=== PATIENT | female | born 1990 | race Caucasian/White ===

== ENCOUNTER 2016-08-08 15:06 | Emergency (ER) | payer SELFPAY ==
[~2016-08-08] VITALS: Ht 154.9 cm; Wt 41.5 kg
[~2016-08-08 15:06] MED LIST: ACET1TAB40 PO; AMO500 PO; CEPH-443 PO; IBUP800T25 PO
[2016-08-08 15:26] VITALS: Ht 154.9 cm; Wt 41.5 kg
[2016-08-08] MEDS ORDERED: SOD CHLORIDE 0.9% 1,000 ML IV ONE (18:00)
[2016-08-08 18:01] LABS: ADD SCAN DIFF NO
[2016-08-08 18:03] LABS: BASOPHILS % 0.4 % (0.0-2.0); EOSINOPHILS # 0.2 10^3/ul (0.0-0.5); EOSINOPHILS % 3.3 % (0.0-7.0); HEMATOCRIT 42.8 % (37.0-47.0); HEMOGLOBIN 14.5 g/dl (12.0-16.0); LYMPHOCYTES # 2.3 10^3/ul (0.8-2.9); LYMPHOCYTES % 32.3 % (15.0-51.0); MEAN CORPUSCULAR HEMOGLOBIN 30.1 pg (29.0-33.0); MEAN CORPUSCULAR HGB CONC 33.9 g/dl (32.0-37.0); MEAN PLATELET VOLUME 10.1 fl (7.4-10.4); MONOCYTE # 0.3 10^3/ul (0.3-0.9); MONOCYTES % 4.3 % (0.0-11.0); NEUTROPHIL # 4.3 10^3/ul (1.6-7.5); NEUTROPHILS % 59.6 % (39.0-77.0); PLATELET COUNT 229 10^3/UL (140-415); RED BLOOD COUNT 4.81 10^6/ul (4.20-5.40); RED CELL DISTRIBUTION WIDTH 12.2 % (11.5-14.5); WHITE BLOOD COUNT 7.3 10^3/ul (4.8-10.8)
[2016-08-08 18:10] LABS: ADD UMIC YES; URINE BILIRUBIN (Dip) NEGATIVE (NEGATIVE); URINE BLOOD (Dip) 3+ (NEGATIVE); URINE COLOR LT. YELLOW (YELLOW); URINE GLUCOSE (Dip) NEGATIVE (NEGATIVE); URINE KETONES (Dip) NEGATIVE (NEGATIVE); URINE LEUKOCYTE ESTERASE (Dip) NEGATIVE (NEGATIVE); URINE NITRITE (Dip) NEGATIVE (NEGATIVE); URINE TOTAL PROTEIN (Dip) NEGATIVE (NEGATIVE); URINE UROBILINOGEN (Dip) 0.2 E.U./dL (0.1-1.0)
[2016-08-08 18:16] LABS: POTASSIUM 3.8 mmol/L (3.5-5.1)
[2016-08-08 18:18] LABS: BILIRUBIN,INDIRECT 0.9 mg/dl (0-1.1); BILIRUBIN,TOTAL 0.9 mg/dl (0.2-1.3); CREATININE 0.59 mg/dl (0.44-1.00); TOTAL PROTEIN 8.9 g/dl (6.1-8.1)
[2016-08-08 18:19] LABS: ALBUMIN/GLOBULIN RATIO 1.28; CALCIUM 9.4 mg/dl (8.4-10.2)
[2016-08-08 18:22] LABS: BACTERIA,URINE FEW; SQUAMOUS EPITHELIAL CELL,UR FEW
--- NOTE | 2016-08-08 19:18 | RADRPT ---
PROCEDURE: Ultrasound pelvis CLINICAL INDICATION: left lower quadrant abdominal pain TECHNIQUE: Multiple ross scale and color Doppler images of the pelvis were obtained transabdominal ly and transvaginally. Images were reviewed PACS workstation COMPARISON: None FINDINGS: The uterus is identified, measuring 6.3 x 3.5 cm. The endometrial canal appears within normal limit s, measuring 6 mm in thickness. The right ovary measures 1.8 x 1.3 x 1.5 cm. The left ovary measures 2.1 x 0.9 x 1.3 cm. The ovari es appear unremarkable in echotexture. There is bilateral vascular flow identified. There is no evidence of free fluid. There is no abnormal adnexal mass. IMPRESSION: Unremarkable pelvic ultrasound examination. No free fluid or abnormal adnexal mass identified. RPTAT: HBST .Jesús Kent MD, Date Time Electronically viewed and signed by .Jesús Kent MD, on 08/08/2016 19:17 .T/
--- NOTE | 2016-08-08 19:40 | ERD ---
ER Documentation Chief Complaint Date/Time DATE: 08/08/16 TIME: 19:37 Chief Complaint VB, CANALES and weakness since yesterday, recently trying to get HPI 25-year-old female patient who is currently trying to get presents to the ED complaining of nausea, dizziness, weakness that started yesterday. Patient reports that sometimes her dizziness is positional. Reports that she started to have vaginal bleeding yesterday and was more heavy than usual. States that she has had some slight lower pelvic pain. Denies any vaginal discharge, chest pain, shortness of breath, wheezing, cough, fever, chills, pleuritic chest pain, dyspnea on exertion. ROS All systems reviewed and are negative except as per history of present illness. Medications Home Meds Active Scripts Acetaminophen-Codeine* (Acetaminophen-Cod #3*) 300-30 Mg Tab, 1 TAB PO Q4H Y for PAIN, #16 TAB Prov:MARÍA ELENA YOUNG MD 07/06/15 Cephalexin* (Keflex*) 500 Mg Capsule, 500 MG PO QID for 10 Days, CAP Prov:MARÍA ELENA YOUNG MD 07/06/15 Ibuprofen* (Ibuprofen*) 800 Mg Tablet, 800 MG PO Q8 for FEVER, #30 TAB Prov:RUDOLPH WHITE DO 07/04/15 Amoxicillin* (Amoxicillin*) 500 Mg Cap, 500 MG PO Q8, #21 CAP Prov:RUDOLPH WHITE DO 07/04/15 Allergies Allergies: Coded Allergies: No Known Allergy (Unverified , 08/08/16) PMhx/Soc Medical and Surgical Hx: pt denies Medical Hx, pt denies Surgical Hx History of Surgery: No Anesthesia Reaction: No Hx Neurological Disorder: No Hx Respiratory Disorders: No Hx Cardiac Disorders: No Hx Psychiatric Problems: No Hx Miscellaneous Medical Probl: No Hx Alcohol Use: No Hx Substance Use: No Hx Tobacco Use: No Smoking Status: Never smoker Physical Exam Vitals Vital Signs Date Time Temp Pulse Resp B/P Pulse Ox O2 Delivery O2 Flow Rate FiO2 08/08/16 19:46 74 16 114/70 98 08/08/16 15:26 97.4 73 18 129/71 100 Physical Exam Const: Hef-lcb-fthpaxise, well-nourished. In no acute distress. Head: Atraumatic, normocephalic Eyes: Normal Conjunctiva without injection. No purulent discharge. ENT: Normal external ear, nose. Moist oropharynx without tonsillar exudates. Non -erythematous pharynx. Uvula midline. No drooling. No trismus. Neck: No cervical midline tenderness. Full range of motion. No meningismus. No cervical lymphadenopathy. No JVD. Resp: Clear to auscultation bilaterally. No wheezing, rhonchi, rales, or crackles. No accessory muscle use. No retractions. Cardio: Regular rate and rhythm. No murmurs, rubs or gallops. Abd: Soft, slight lower abdominal tenderness, non distended. Normal bowel sounds. No palpable masses. No rebound tenderness. No guarding. Negative McBurney's point. Negative psoas sign. Negative obturator sign. Skin: No petechiae or rashes Back: No midline tenderness. No CVA tenderness. Ext: No cyanosis, or edema. Neur: Awake and alert. Normal gait. Normal coordination. Psych: Normal Mood and Affect Result Diagram: 08/08/16175008/08/16 175 Results 24 hrs Laboratory Tests Test 08/08/16 17:51 White Blood Count 7.310^3/ul Red Blood Count 4.8110^6/ul Hemoglobin 14.5g/dl Hematocrit 42.8% Mean Corpuscular Volume 89.0fl Mean Corpuscular Hemoglobin 30.1pg Mean Corpuscular Hemoglobin Concent 33.9g/dl Red Cell Distribution Width 12.2% Platelet Count 16043^3/UL Mean Platelet Volume 10.1fl Neutrophils % 59.6% Lymphocytes % 32.3% Monocytes % 4.3% Eosinophils % 3.3% Basophils % 0.4% Nucleated Red Blood Cells % 0.0/100WBC Neutrophils # 4.310^3/ul Lymphocytes # 2.310^3/ul Monocytes # 0.310^3/ul Eosinophils # 0.210^3/ul Basophils # 0.010^3/ul Nucleated Red Blood Cells # 0.010^3/ul Urine Color LT. YELLOW Urine Clarity CLEAR Urine pH 6.5 Urine Specific [place] 1.025 Urine Ketones NEGATIVE Urine Nitrite NEGATIVE Urine Bilirubin NEGATIVE Urine Urobilinogen 0.2 E.U./dL Urine Leukocyte Esterase NEGATIVE Urine Microscopic RBC 10-25/HPF Urine Microscopic WBC 0-2/HPF Urine Squamous Epithelial Cells FEW Urine Bacteria FEW Urine Hemoglobin 3+ Urine Glucose NEGATIVE% Urine Total Protein NEGATIVE Sodium Level 141mmol/L Potassium Level 3.8mmol/L Chloride Level 102mmol/L Carbon Dioxide Level 25mmol/L Anion Gap 18 Blood Urea Nitrogen 17mg/dl Creatinine 0.59mg/dl Glucose Level 93mg/dl Calcium Level 9.4mg/dl Total Bilirubin 0.9mg/dl Direct Bilirubin 0.00mg/dl Indirect Bilirubin 0.9mg/dl Aspartate Amino Transf (AST/SGOT) 25IU/L Alanine Aminotransferase (ALT/SGPT) 25IU/L Alkaline Phosphatase 77IU/L Total Protein 8.9g/dl Albumin 5.0g/dl Globulin 3.90g/dl Albumin/Globulin Ratio 1.28 Lipase 131U/L Current Medications Medications (Trade) Dose Ordered Sig/Jose Route PRN Reason Start Time Stop Time Status Last Admin Dose Admin Sodium Chloride (NS) 1,000 ml @ 1,000 mls/hr Q1H ONCE IV 08/08/16 18:00 08/08/16 18:59 DC 08/08/16 17:53 Procedures/MDM This is a 25-year-old female patient brought in by mother complaining of vaginal bleeding, weakness, dizziness started yesterday. Patient is afebrile and nontoxic-appearing. Patient has normal vital signs. A pelvic ultrasound, CBC, CMP, lipase, UA was ordered to evaluate patient. Patient symptoms improved after receiving 1 L of normal saline, 4 mg IV Zofran. CBC: No leukocytosis. No e/o of systemic infection. No e/o anemia. CMP: No e/o severe acidosis, alkalosis, renal failure, diabetic ketoacidosis, liver disease Lipase within normal limits. Urine: No leukocyte esterase, no nitrites, no hematuria. EKG reviewed and interpreted by Dr. Lauren Rate/Rhythm: [73 bpm, Normal Sinus Rhythm] No ectopy, no ST elevations, normal axis. QRS, ST, T-waves: [No changes consistent w/ acute ischemia] Impression: [No evidence of ischemia or arrhythmia] Low suspicion for acute myocardial infarction, pneumothorax, pneumonia, cardiac tamponade, pulmonary embolism, AAA, aortic dissection, Boerhaave's syndrome, cardiac dysrhythmias,meningitis, intracranial bleed, seizure, stroke, TIA or other emergent conditions. PROCEDURE: Ultrasound pelvis CLINICAL INDICATION: left lower quadrant abdominal pain TECHNIQUE: Multiple ross scale and color Doppler images of the pelvis were obtained transabdominally and transvaginally. Images were reviewed PACS workstation COMPARISON: None FINDINGS: The uterus is identified, measuring 6.3 x 3.5 cm. The endometrial canal appears within normal limits, measuring 6 mm in thickness. The right ovary measures 1.8 x 1.3 x 1.5 cm. The left ovary measures 2.1 x 0.9 x 1.3 cm. The ovaries appear unremarkable in echotexture. There is bilateral vascular flow identified. There is no evidence of free fluid. There is no abnormal adnexal mass. IMPRESSION: Unremarkable pelvic ultrasound examination. No free fluid or abnormal adnexal mass identified. Patient's bleeding symptoms have stabilized while in the department. Low suspicion for symptomatic anemia, ectopic , sepsis, PID, appendicitis, ovarian torsion, tubo-ovarian abscess, surgical abdomen, or other emergent conditions. Low suspicion for carotid artery dissection, acute myocardial infarction, pneumothorax, pneumonia, cardiac tamponade, pulmonary embolism, pleural effusion, AAA, aortic dissection, Boerhaave's syndrome, cardiac dysrhythmias, meningitis, intracranial bleed, seizure, stroke, TIA or other emergent conditions. Follow up with primary care physician/ yoker in 1-2 days. Instructed patient to return to the ED sooner for any worsening symptoms. Patient's questions were answered. Patient understood and agreed with discharge plan. Patient discharged stable. Departure Diagnosis: Primary Impression: Menstruation Condition: Stable Patient Instructions: Understanding the Normal Menstrual Cycle Referrals: [facility] () Usted se canales hecho un examen mdico de control que le indica que no est en erika condicin que requiera tratamiento urgente en el Departamento de Emergencia. Un estudio ms profundo y el tratamiento de granados condicin pueden esperar sin ningn riesgo hasta que usted sea atendida/o en el consultorio de granados mdico o erika cl sheila. Es responsabilidad suya arreglar erika gildardo para el seguimiento del dick. MANEJO DE CONDICIONES NO URGENTES EN EL FUTURO 1) Si usted tiene un mdico de atencin primaria: Usted debera llamar a granados mdico de atencin primaria antes de venir al departamento de emergencia. Despus de las horas de consultorio, granados doctor o granados asociado/a est disponible por telfono. El mdico o enfermero de tommy en el servicio telefnico puede asesorarle por kim medio para atender el problema, o dick contrario se puede programar erika gildardo. 2) Si usted no tiene un mdico de atencin primaria: Llame al mdico o clnica de referencia que aparece abajo jordan las horas de consultorio para hacer erika gildardo para que le vean. CLINICAS: [facility] [phone] [facility] [phone] [facility] [phone] [place] [address] [phone] [place] [id number] [phone] [facility]. [phone] [facility] () Usted se canales hecho un examen mdico de control que le indica que no est en erika condicin que requiera tratamiento urgente en el Departamento de Emergencia. Un estudio ms profundo y el tratamiento de granados condicin pueden esperar sin ningn riesgo hasta que usted sea atendida/o en el consultorio de granados mdico o erika cl sheila. Es responsabilidad suya arreglar erika gildardo para el seguimiento del dick. MANEJO DE CONDICIONES NO URGENTES EN EL FUTURO 1) Si usted tiene un mdico de atencin primaria: Usted debera llamar a granados mdico de atencin primaria antes de venir al departamento de emergencia. Despus de las horas de consultorio, granados doctor o granados asociado/a est disponible por telfono. El mdico o enfermero de tommy en el servicio telefnico puede asesorarle por kim medio para atender el problema, o dick contrario se puede programar erika gildardo. 2) Si usted no tiene un mdico de atencin primaria: Llame al mdico o condado institucions de referencia que aparece abajo jordan las horas de consultorio para hacer erika gildardo para que le vean. SI USTED NO PUEDE PAGAR PARA SANJU UN MEDICO puede ir a: [facility] [address] [place] [address] [facility] [address] [place] [address] [facility] [address] [place] [address] PAR[address] [facility] [address] [place], [place] [id number] [facility] URGENT CARE/SPECIALTIES [employer] [address] [facility] [address] [place], [place] [phone] OFFICE FAX BERNARDA LYLESNICA [address] [place], [place] [phone] [address] [place] [address] [place], [place] [phone] [place] [address] [facility], [address] [facility] [address] [address]IT[address] [address] [place], [place] [phone] [facility] [place] [address] [place], [place] [address] [address] [facility] [phone] - DANELLE MATHIAS [address] [facility] [phone], [place] [address] [facility]. [address], [facility] [address] [address] [address] [place] [address] [facility] Hours: 8:00 am - 5:00 pm Additional Instructions: Call your primary care doctor TOMORROW for an appointment during the next 2-3 days.See the doctor sooner or return here if your condition worsens before your appointment time. FARHAN WIGGINS PA-C Aug 08, 2016 19:40
[2016-08-08 19:46] VITALS: BP 114/70; PULSE 74; RESP 16
== END 2016-08-08 19:46 | disposition home or self-care (01) ==
LOC: FTE 15:06
DX: N92.0 Excessive and frequent menstruation with regular cycle (principal); R10.2 Pelvic and perineal pain
CPT/HCPCS: 76830; 76856; 80053; 81001; 81003; 83690; 85025; 93005; J7030; 36415

== ENCOUNTER 2016-10-21 20:09 | Emergency (ER) | payer SELFPAY ==
[~2016-10-21] VITALS: Wt 43.0 kg
--- NOTE | 2016-10-21 21:39 | ERD ---
ER Documentation Chief Complaint Date/Time DATE: 10/21/16 TIME: 21:37 Chief Complaint Vaginal bleed Since this afternoon. pelvic pain HPI 25 yo female who is A0, comes in with vaginal bleeding, and pelvic pain since this morning. She states her last LMP was September 04, 2016. Patient states that she has had light vaginal bleeding, and suprapubic intermittent pelvic pain , she states that it is diffuse. She has not had any fevers, chills, nausea, vomiting, dizziness. ROS All systems reviewed and are negative except as per history of present illness. Medications Home Meds Active Scripts Acetaminophen-Codeine* (Acetaminophen-Cod #3*) 300-30 Mg Tab, 1 TAB PO Q4H Y for PAIN, #16 TAB Prov:MARÍA ELENA YOUNG MD 07/06/15 Cephalexin* (Keflex*) 500 Mg Capsule, 500 MG PO QID for 10 Days, CAP Prov:MARÍA ELENA YOUNG MD 07/06/15 Ibuprofen* (Ibuprofen*) 800 Mg Tablet, 800 MG PO Q8 for FEVER, #30 TAB Prov:RUDOLPH WHITE DO 07/04/15 Amoxicillin* (Amoxicillin*) 500 Mg Cap, 500 MG PO Q8, #21 CAP Prov:RUDOLPH WHITE DO 07/04/15 Allergies Allergies: Coded Allergies: No Known Allergy (Unverified , 08/08/16) PMhx/Soc History of Surgery: No Anesthesia Reaction: No Hx Neurological Disorder: No Hx Respiratory Disorders: No Hx Cardiac Disorders: No Hx Psychiatric Problems: No Hx Miscellaneous Medical Probl: No Hx Alcohol Use: No Hx Substance Use: No Hx Tobacco Use: No Smoking Status: Never smoker Physical Exam Vitals Vital Signs Date Time Temp Pulse Resp B/P Pulse Ox O2 Delivery O2 Flow Rate FiO2 10/21/16 20:41 98.8 72 20 97/63 100 Physical Exam General: Well-developed, well-nourished. The patient appears in no acute distress. HEENT: Head is normocephalic, atraumatic. No scleral icterus. Neck: Supple. Nontender. Lungs: Clear to auscultation. Normal air movement. Heart: Regular rate and rhythm. S1 and S2 are normal. No murmurs, gallops, or rubs. Abdomen: Soft, suprapubic tenderness without rebound pain, nondistended. Bowel sounds are normoactive. Extremities: No clubbing or cyanosis. Normal pulses. Moving extremities x 4. No weakness. Neurologic: Alert and oriented 3. No focal deficits. Skin: Normal turgor. No rash or lesions. Result Diagram: 10/21/162203 Results 24 hrs Laboratory Tests Test 10/21/16 22:00 10/21/16 22:04 Urine Color YELLOW Urine Clarity SLIGHTLY CLOUDY Urine pH 5.0 Urine Specific [place] 1.010 Urine Ketones NEGATIVEmg/dL Urine Nitrite NEGATIVEmg/dL Urine Bilirubin NEGATIVEmg/dL Urine Urobilinogen NEGATIVEmg/dL Urine Leukocyte Esterase NEGATIVELeu/ul Urine Microscopic RBC 1/HPF Urine Microscopic WBC 1/HPF Urine Squamous Epithelial Cells FEW/HPF Urine Bacteria FEW/HPF Urine Hemoglobin 3+mg/dL Urine Glucose NEGATIVEmg/dL Urine Total Protein NEGATIVEmg/dl White Blood Count 10.010^3/ul Red Blood Count 4.4610^6/ul Hemoglobin 13.4g/dl Hematocrit 39.0% Mean Corpuscular Volume 87.4fl Mean Corpuscular Hemoglobin 30.0pg Mean Corpuscular Hemoglobin Concent 34.4g/dl Red Cell Distribution Width 12.3% Platelet Count 80811^3/UL Mean Platelet Volume 9.7fl Neutrophils % 68.4% Lymphocytes % 24.3% Monocytes % 4.5% Eosinophils % 2.2% Basophils % 0.3% Nucleated Red Blood Cells % 0.0/100WBC Neutrophils # 6.910^3/ul Lymphocytes # 2.410^3/ul Monocytes # 0.510^3/ul Eosinophils # 0.210^3/ul Basophils # 0.010^3/ul Nucleated Red Blood Cells # 0.010^3/ul DIAGNOSTIC IMAGING REPORT Patient: MILAGRO OLEA : 1990 Age: 25 Sex: F MR #: [id number] DOS: 10/21/162114 Ordering MD: KARL PARRISH PA-C Location: [facility] Room/Bed: PROCEDURE: Obstetrical ultrasound. CLINICAL INDICATION: Vaginal bleeding. TECHNIQUE: Multiple sonographic images of the pelvis were obtained with transabdominal and endovaginal technique. Images were obtained with ross scale and color Doppler. COMPARISON: 08/08/2016. FINDINGS: There is an intrauterine gestational sac with a pole identified. heart tones of 112 beats per minute are identified. The crown-rump length averages 0.48 cm, compatible with 6 weeks and 1 day. The mean sac diameter averages 1.33 cm, compatible with 6 weeks and 0 days. A yolk sac is identified. A small subchorionic collection is identified. There is no pelvic free fluid. The right ovary measures 3.0 x 1.5 x 1.8 cm and the left ovary measures 3.0 x 1.2 x 1.4 cm. There is normal flow to both ovaries. There is a left ovarian corpus luteum cyst measuring 1.4 cm. There is no suspicious adnexal mass identified. IMPRESSION: Single live intrauterine with an estimated gestational age of 6 weeks and 1 day, with an ultrasound CHARLY of 06/15/2017. Small subchorionic hemorrhage. Left ovarian 1.4 cm corpus luteum cyst. .Joe Hunt MD, Date Time Electronically viewed and signed by .Joe Hunt MD, MD on 10/21/2016 22:58 .T/ CC: KARL PARRISH PA-C Procedures/MDM ED course: Patient was offered pain medication including Tylenol at this time and she declined. Medical decision makin-year-old female this is her first , comes in with pelvic pain and vaginal bleeding 1 day. Patient is a single live intrauterine at 6 weeks. There is a small subchorionic hemorrhage however she is O+ and not a candidate for RhoGam. She is hemodynamically stable , went and will be given instructions to recheck with her OB in 3-4 days. Differential diagnosis includes normal early live intrauterine , versus threatened . No evidence of ectopic or adnexal masses Departure Diagnosis: Primary Impression: Vaginal bleeding in patient at less than 20 weeks gestation Condition: KARL Longoria PA-C Oct 21, 2016 21:39
[2016-10-21 22:19] LABS: ADD UMIC YES; UR ASCORBIC ACID NEGATIVE (NEGATIVE); UR BACTERIA FEW /HPF (NONE SEEN); UR BILIRUBIN (Dip) NEGATIVE (NEGATIVE); UR BLOOD (Dip) 3+ mg/dL (NEGATIVE); UR CLARITY SLIGHTLY CLOUDY (CLEAR); UR COLOR YELLOW (YELLOW); UR GLUCOSE (Dip) NEGATIVE (NEGATIVE); UR KETONES (Dip) NEGATIVE (NEGATIVE); UR LEUKOCYTE ESTERASE (Dip) NEGATIVE Leu/ul (NEGATIVE); UR NITRITE (Dip) NEGATIVE (NEGATIVE); UR RBC 1 /HPF (0-5); UR SQUAMOUS EPITHELIAL CELL FEW /HPF (FEW); UR TOTAL PROTEIN (Dip) NEGATIVE (NEGATIVE); UR UROBILINOGEN (Dip) NEGATIVE (NEGATIVE)
[2016-10-21 22:28] LABS: ADD SCAN DIFF NO
[2016-10-21 22:32] LABS: BASOPHILS % 0.3 % (0.0-2.0); EOSINOPHILS # 0.2 10^3/ul (0.0-0.5); EOSINOPHILS % 2.2 % (0.0-7.0); HEMOGLOBIN 13.4 g/dl (12.0-16.0); LYMPHOCYTES # 2.4 10^3/ul (0.8-2.9); LYMPHOCYTES % 24.3 % (15.0-51.0); MEAN CORPUSCULAR HGB CONC 34.4 g/dl (32.0-37.0); MEAN CORPUSCULAR VOLUME 87.4 fl (82.0-101.0); MEAN PLATELET VOLUME 9.7 fl (7.4-10.4); MONOCYTE # 0.5 10^3/ul (0.3-0.9); MONOCYTES % 4.5 % (0.0-11.0); NEUTROPHIL # 6.9 10^3/ul (1.6-7.5); NEUTROPHILS % 68.4 % (39.0-77.0); PLATELET COUNT 249 10^3/UL (140-415); RED BLOOD COUNT 4.46 10^6/ul (4.20-5.40); RED CELL DISTRIBUTION WIDTH 12.3 % (11.5-14.5)
--- NOTE | 2016-10-21 22:58 | RADRPT ---
PROCEDURE: Obstetrical ultrasound. CLINICAL INDICATION: Vaginal bleeding. TECHNIQUE: Multiple sonographic images of the pelvis were obtained with transabdominal and endova ginal technique. Images were obtained with ross scale and color Doppler. COMPARISON: 08/08/2016. FINDINGS: There is an intrauterine gestational sac with a pole identified. heart tones of 112 beat s per minute are identified. The crown-rump length averages 0.48 cm, compatible with 6 weeks a nd 1 day. The mean sac diameter averages 1.33 cm, compatible with 6 weeks and 0 days. A yolk sac is identified. A small subchorionic collection is identified. There is no pelvic free fluid. The right ovary measures 3.0 x 1.5 x 1.8 cm and the left ovary measur es 3.0 x 1.2 x 1.4 cm. There is normal flow to both ovaries. There is a left ovarian corpus luteum c yst measuring 1.4 cm. There is no suspicious adnexal mass identified. IMPRESSION: Single live intrauterine with an estimated gestational age of 6 weeks and 1 day, with an [facility] CHARLY of 06/15/2017. Small subchorionic hemorrhage. Left ovarian 1.4 cm corpus luteum cyst. .Joe Hunt MD, MD Date Time Electronically viewed and signed by .Joe Hunt MD, MD on 10/21/2016 22:58 .T/
[2016-10-22 00:35] VITALS: BP 105/63; PULSE 89; RESP 20; TEMP 98.3
== END 2016-10-22 00:36 | disposition home or self-care (01) ==
LOC: FTE 20:09
DX: O20.9 Hemorrhage in early pregnancy, unspecified (principal); R10.2 Pelvic and perineal pain; Z3A.01 Less than 8 weeks gestation of pregnancy
CPT/HCPCS: 36415; 76801; 76817; 81001; 84702; 85025; 86900; 86901

== ENCOUNTER 2017-05-29 23:45 | Inpatient (IN) | END 2017-06-01 16:50 | disposition home or self-care (01) | DRG 775 ==

== ENCOUNTER 2018-11-26 20:26 | Emergency (ER) | payer OTHER ==
[~2018-11-26] VITALS: Ht 152.4 cm; Wt 44.6 kg
[~2018-11-26 20:26] MED LIST changes: -ACET1TAB40 PO; -AMO500 PO; +AMOX500C2 PO; +FLUC150T PO; +IBUP-1542 PO; -IBUP800T25 PO; +NPH10OT LEFT EAR; +PREN-93 PO
[2018-11-26 20:30] VITALS: Ht 152.4 cm; Wt 44.6 kg
[2018-11-26] MEDS ORDERED: ACETAMINOPHEN 325 MG TAB PO ONE (21:00)
[2018-11-26] MEDS ORDERED: FLUCONAZOLE 100 MG TAB PO ONE (22:00)
[2018-11-26] MEDS ORDERED: FLUCONAZOLE 150 MG TAB PO ONE (22:00)
[2018-11-26 22:21] VITALS: BP 118/76; PULSE 71; RESP 16
--- NOTE | 2018-11-26 22:39 | ERD ---
ER Documentation Chief Complaint Chief Complaint DYSURIA X1 WEEK HPI This is a very pleasant 28-year-old female who presents to the ED complaining of vaginal itching, redness and urinary symptoms x10 days. Patient states she took [id number] topical antifungal creams with no relief. She has some urinary frequency, urgency as well. No fevers. No back pain., No nausea, no vomiting. No history of recurrent vaginal infections or urinary infections. ROS All systems reviewed and are negative except as per history of present illness. Medications Home Meds Active Scripts Cephalexin* (Keflex*) 500 Mg Capsule, 500 MG PO BID for 7 Days, CAP Prov:DISHIGRIKIAN,ZEPYUR N PA-C 11/26/18 Fluconazole* (Diflucan*) 150 Mg Tablet, 150 MG PO ONCE, #1 TAB Prov:DISHIGRIKIAN,ZEPYUR N PA-C 11/26/18 Ibuprofen* (Motrin*) 600 Mg Tab, 600 MG PO Q6H PRN for PAIN AND OR ELEVATED TEMP, #30 TAB Prov:JORGE ALBERTO MCGOVERN MD 06/10/18 Neomycin/Polymyxin/Hydrocort* (Cortisporin* Otic) 10 Ml Susp, 4 DROP LEFT EAR QID for 7 Days, EA Prov:JORGE ALBERTO MCGOVERN MD 06/10/18 Amoxicillin* (Amoxicillin*) 500 Mg Cap, 500 MG PO TID for 7 Days, CAP Prov:JORGE ALBERTO MCGOVERN MD 06/10/18 Reported Medications Vit No.124/Iron/FA ( Vitamin Tablet) 1 Each Tablet, 1 EACH PO, TAB 05/29/17 Allergies Allergies: Coded Allergies: No Known Allergy (Unverified , 05/29/17) PMhx/Soc Medical and Surgical Hx: pt denies Medical Hx, pt denies Surgical Hx History of Surgery: No Anesthesia Reaction: No Hx Neurological Disorder: No Hx Respiratory Disorders: No Hx Cardiac Disorders: No Hx Psychiatric Problems: No Hx Miscellaneous Medical Probl: No Hx Alcohol Use: No Hx Substance Use: No Hx Tobacco Use: No Smoking Status: Never smoker Physical Exam Vitals Vital Signs Date Temp Pulse Resp B/P (MAP) Pulse Ox O2 O2 Flow FiO2 Time Delivery Rate 11/26/18 98.0 71 16 118/76 98 Room Air 22:21 (90) 11/26/18 98.4 74 16 111/66 99 20:30 (81) Physical Exam Const: No acute distress Head: Atraumatic Eyes: Normal Conjunctiva ENT: Normal External Ears, Nose and Mouth. Neck: Full range of motion. No meningismus. Resp: Clear to auscultation bilaterally Cardio: Regular rate and rhythm, no murmurs Abd: Soft, non tender, non distended. Normal bowel sounds Pelvic Exam: Abdomen: Nontender External Genitalia: Normal Skin Speculum: Normal vaginal mucosa, + white vaginal discharge Bimanual: No adnexal masses or tenderness, No CMT Skin: No petechiae or rashes Back: + Mid suprapubic tennis palpation. No CVA tenderness palpation. Ext: No cyanosis, or edema Neur: Awake and alert Psych: Normal Mood and Affect Results 24 hrs Laboratory Tests Test 11/26/18 21:02 11/26/18 21:09 Urine Color YELLOW Urine Clarity CLOUDY Urine pH 5.0 Urine Specific [place] 1.030 Urine Ketones NEGATIVE mg/dL Urine Nitrite NEGATIVE mg/dL Urine Bilirubin NEGATIVE mg/dL Urine Urobilinogen NEGATIVE mg/dL Urine Leukocyte Esterase 3+ Pina/ul Urine Microscopic RBC 56 /HPF Urine Microscopic WBC 42 /HPF Urine Squamous Epithelial Cells FEW /HPF Urine Hemoglobin 2+ mg/dL Urine Glucose NEGATIVE mg/dL Urine Total Protein NEGATIVE mg/dl POC Beta HCG, Qualitative NEGATIVE Current Medications Medications Dose Sig/Jose Start Time Status Last (Trade) Ordered Route PRN Stop Time Admin Dose Reason Admin 650 mg ONCE ONCE 11/26/18 DC Acetaminophen PO 21:00 (Tylenol 11/26/18 21:01 Tab) Fluconazole 150 mg ONCE ONCE 11/26/18 Cancel (Diflucan) PO 22:00 11/26/18 22:01 Fluconazole 150 mg ONCE ONCE 11/26/18 DC 11/26/18 (Diflucan) PO 22:00 22:18 11/26/18 22:17 Procedures/MDM LABS & DIAGNOSTIC IMAGING: Urine: 3+ leuk esterase with hematuria and pyuria wet mount: + yeast ED COURSE: The patient was given fluconazole The medication was well tolerated and the patient had market improvement in symptoms. The patient remained stable throughout ED course. MEDICAL DECISION MAKIN-year-old female presents with urinary symptoms and vaginal itching and discharge. UA confirmed acute cystitis, wet mount was also positive for candidiasis. Patient was given fluent fluconazole here and provided rx for outpatient antibiotics. She has no fever here, vital signs are normal. Physical exam essentially unremarkable. I have low suspicion for severe dehydration, pyelonephritis or PID. Patient discharged home with [facility] follow- up next week. Strict return precautions were discussed. PRESCRIPTIONS: Fluconazole, Keflex SPECIALIST FOLLOW UP RECOMMENDED: None Patient has been advised to follow up with primary care in 1-2 days. Departure Diagnosis: Primary Impression: UTI (urinary tract infection) Urinary tract infection type: acute cystitis Hematuria presence: with hematuria Qualified Codes: N30.01 - Acute cystitis with hematuria Additional Impression: Vulvovaginal candidiasis Condition: Stable Patient Instructions: Understanding Urinary Tract Infections (UTIs) Additional Instructions: Paciente aconseja volver a Departamento de urgencias inmediatamente para sntomas nuevos o que empeoran . Paciente aconseja posteriores con el PCP en 1-2 gonsales. Si el paciente no tiene ninguna de atencin primaria pueden seguir con [facility] [address] [place] [address] o [facility] + [address] [address] MANJINDER GONZALES PA-C Nov 26, 2018 22:39
== END 2018-11-26 22:21 | disposition home or self-care (01) ==
LOC: FTE 20:26
DX: N30.01 Acute cystitis with hematuria (principal); B37.3 Candidiasis of vulva and vagina
CPT/HCPCS: 81001; 81025; 87220; Z7502; Z7610; 99284